=== PATIENT | female | born 1985 | race Hispanic/Latino ===

== ENCOUNTER 2020-09-25 18:30 | Emergency (ER) | payer SELFPAY ==
[2020-09-25] MEDS ORDERED: TETANUS,DIPH,PERTUSS(ACELL) VACCINE 0.5 ML SYRINGE IM ONE (20:14)
[2020-09-25] MEDS ORDERED: IBUPROFEN 600 MG TAB PO ONE (20:14)
[2020-09-25] MEDS ORDERED: ACETAMINOPHEN 500 MG TAB PO ONE (20:14)
[2020-09-25] MEDS ORDERED: ONDANSETRON 4 MG ODT TAB PO ONE (20:15)
--- NOTE | 2020-09-25 20:20 | Emergency Department Report ---
ED Extremity Problem HPI - General Stated complaint: LEFT FOOT INJURY, STEPPED ON A MARIO NAIL Source: patient Mode of arrival: Ambulatory Limitations: No Limitations - History of Present Illness Initial comments: Patient is a 35-year-old white female with a history of chronic tobacco abuse and colitis who presents to the ED with complaint of acute onset persistent severe left plantar foot pain with swelling from a puncture wound she sustained when she accidentally stepped on an old mario nail that appears through her shoes 24 hours ago. Patient states that in the last 12 hours, the pain and the swelling of worsened and that she is unable to bear weight on the left foot because of worsening pain. Patient states that she is not up-to-date with her tetanus vaccinations. Patient denies fever, chills, nausea, vomiting, numbness and tingling or weakness of left foot, dizziness, fall, low back pain, chest pain or shortness of breath. MD Complaint: extremity pain (left foot pain, s/p puncture wound from stepping on a mario nail), extremity swelling (left foot) -: Sudden, hour(s) (24) Location: left, lower extremity (left foot puncture wound with pain and swelling) History of Same: No -: Yes myalgia, Yes arthralgia, No fever, No associated dyspnea, No associated chest pain Radiation: distal Severity scale (0 -10): 8 Quality: aching, sharp Consistency: constant Improves with: nothing Worsens with: weight bearing, walking, exertion, palpation Associated Symptoms: denies other symptoms, myalgias, arthralgias. denies: chest pain, shortness of breath, fever, rash, other (Small puncture wound with swelling and pain on left plantar foot) - Related Data Previous Rx's Medication Instructions Recorded Last Taken Type Acetaminophen [Tylenol] 500 mg PO Q6HR PRN #30 tablet 09/25/20 Unknown Rx Ciprofloxacin HCl 500 mg PO Q12H #20 tablet 09/25/20 Unknown Rx traMADoL [Ultram] 50 mg PO Q6HR PRN #12 tablet 09/25/20 Unknown Rx Allergies Allergy/AdvReac Type Severity Reaction Status Date / Time Iodinated Contrast Media Allergy Itching Verified 09/25/20 20:20 Penicillins Allergy Anaphylaxis Verified 09/25/20 20:20 Sulfa (Sulfonamide Allergy Anaphylaxis Verified 09/25/20 20:20 Antibiotics) NSAIDS (Non-Steroidal AdvReac Diarrhea Verified 09/25/20 20:20 Anti-Inflamma ED Review of Systems ROS: Stated complaint: LEFT FOOT INJURY, STEPPED ON A MARIO NAIL Other details as noted in HPI Constitutional: malaise. denies: chills, fever Eyes: denies: eye pain, eye discharge, vision change ENT: denies: ear pain, throat pain Respiratory: denies: cough, shortness of breath, wheezing Cardiovascular: denies: chest pain, palpitations Endocrine: no symptoms reported Gastrointestinal: denies: abdominal pain, nausea, vomiting, diarrhea Genitourinary: denies: urgency, dysuria, discharge Musculoskeletal: joint swelling (Left foot), arthralgia (Left foot pain with swelling due to a small puncture wound on left plantar foot). denies: back pain Skin: other (Painful small puncture wound on left plantar foot with swelling). denies: rash, lesions Neurological: denies: headache, weakness, paresthesias Psychiatric: denies: anxiety, depression Hematological/Lymphatic: denies: easy bleeding, easy bruising ED Past Medical Hx - Past Medical History Additional medical history: Colitis - Medications Home Medications: Home Medications Medication Instructions Recorded Confirmed Last Taken Type Acetaminophen [Tylenol] 500 mg PO Q6HR PRN #30 tablet 09/25/20 Unknown Rx Ciprofloxacin HCl 500 mg PO Q12H #20 tablet 09/25/20 Unknown Rx traMADoL [Ultram] 50 mg PO Q6HR PRN #12 tablet 09/25/20 Unknown Rx ED Physical Exam - General General appearance: alert, in no apparent distress - Head Head exam: Present: atraumatic, normocephalic, normal inspection - Eye Eye exam: Present: normal appearance, PERRL, EOMI Pupils: Present: normal accommodation - ENT ENT exam: Present: normal exam, normal orophraynx, mucous membranes moist, TM's normal bilaterally, normal external ear exam - Neck Neck exam: Present: normal inspection, full ROM - Respiratory Respiratory exam: Present: normal lung sounds bilaterally. Absent: respiratory distress, wheezes, rales, rhonchi, chest wall tenderness, accessory muscle use, decreased breath sounds - Cardiovascular Cardiovascular Exam: Present: regular rate, normal rhythm, normal heart sounds. Absent: systolic murmur, diastolic murmur, rubs, gallop - GI/Abdominal GI/Abdominal exam: Present: soft, normal bowel sounds. Absent: distended, tenderness, guarding, hyperactive bowel sounds, hypoactive bowel sounds, organomegaly - Extremities Exam Extremities exam: Present: normal inspection, full ROM, tenderness (Palpable severe left plantar foot tenderness with mild swelling due to a small puncture wound), normal capillary refill, joint swelling (Left foot swelling) - Back Exam Back exam: Present: normal inspection, full ROM. Absent: tenderness, CVA tenderness (R), CVA tenderness (L), muscle spasm, paraspinal tenderness, vertebral tenderness - Neurological Exam Neurological exam: Present: alert, oriented X3, CN II-XII intact, normal gait, reflexes normal - Psychiatric Psychiatric exam: Present: normal affect, normal mood - Skin Skin exam: Present: warm, dry, intact, normal color, abrasion (Small puncture wound on left plantar foot with tenderness and mild swelling). Absent: rash ED Course Vital Signs 09/25/20 20:14 Temperature 98.5 F Pulse Rate 75 Respiratory 12 Rate Blood Pressure 101/65 O2 Sat by Pulse 100 Oximetry ED Medical Decision Making - Radiology Data Radiology results: report reviewed, image reviewed [facility] [address] [place] [address] XRay Report Signed Patient: JACKELYN GREENBERG MR#: [id number] [birth year] : 1985 Acct:[id number] Age/Sex: 35 / F ADM Date: 09/25/20 Loc: ED Attending Dr: Ordering Physician: JOANIE MENSAH Date of Service: 09/25/20 Procedure(s): XR foot 3+V LT Accession Number(s): [id number] cc: JOANIE MENSAH Fluoro Time In Minutes: XR foot 3+V LT INDICATION / CLINICAL INFORMATION: Puncture wound COMPARISON: None available. FINDINGS: BONES / JOINT(S): No acute fracture or subluxation. Lisfranc interval is maintained. No significant arthritis. SOFT TISSUES: No significant abnormality. No soft tissue gas or radiopaque foreign body. ADDITIONAL FINDINGS: None. IMPRESSION: No significant abnormality of the left foot. No soft tissue gas, radiopaque foreign body, or acute fracture. Signer Name: Lisa Mena MD Signed: 09/25/2020 8:50 PM Workstation Name: [id number] Transcribed By: SAMARA Dictated By: LISA MENA MD Electronically Authenticated By: LISA MENA MD Signed Date/Time: 09/25/202049 DD/ 48 TD/TT: - Medical Decision Making This is a 35-year-old white female with a history of chronic tobacco abuse and colitis who presents to the ED with complaint of acute onset persistent severe left plantar foot pain with swelling from a puncture wound she sustained when she accidentally stepped on an old mraio nail that appears through her shoes 24 hours ago. Patient states that in the last 12 hours, the pain and the swelling of worsened and that she is unable to bear weight on the left foot because of worsening pain. Patient states that she is not up-to-date with her tetanus vaccinations. In the ED, patient is alert and oriented x3 and is not in any distress but appears to be in significant pain, unable to bear weight on the left foot during the physical exam. Patient was treated for pain in the ED and left foot x-ray shows no acute fractures or subluxations or presence of any foreign bodies within the tissues of the left plantar foot. Patient also received booster tetanus vaccination in the ED and also received initial oral prophylactic antibiotics in the ED. On reevaluation, patient's pain is well controlled medications. Patient was discharged home on pain medication and prophylactic antibiotics ciprofloxacin 500 mg to be taken every 12 hours for 10 days. Patient was advised to follow-up with her primary care physician in 5 to 7 days for reevaluation or return to the ED immediately if symptoms get worse. - Differential Diagnosis Puncture wound; cellulitis; foot fracture; foreign body in foot Critical care attestation.: If time is entered above; I have spent that time in minutes in the direct care of this critically ill patient, excluding procedure time. ED Disposition Clinical Impression: Puncture wound of plantar aspect of left foot Qualifiers: Encounter type: initial encounter Qualified Code(s): S91.332A - Puncture wound without foreign body, left foot, initial encounter Disposition: TO HOME OR SELFCARE Is pt being admited?: No Does the pt Need Aspirin: No Condition: Stable Instructions: Puncture Wound, [id number] Additional Instructions: The x-ray of your left foot showed no acute fractures or subluxations or presence of any foreign bodies within the tissues of the left foot. Therefore take medications with food, drink plenty of fluids and follow-up with your primary care physician in 7 to 10 days for reevaluation. Return to the ED immediately if symptoms get worse. Prescriptions: Acetaminophen [Tylenol] 500 mg PO Q6HR PRN #30 tablet PRN Reason: Pain , Severe (7-10) Ciprofloxacin HCl 500 mg PO Q12H #20 tablet traMADoL [Ultram] 50 mg PO Q6HR PRN #12 tablet PRN Reason: Pain Referrals: [facility] [Provider Group] - 3-5 Days Forms: Work/School Release Form(ED) Time of Disposition: 20:22 Print Language: GERMAN
[2020-09-25] MEDS ORDERED: HYDROcodone/ACETAMINOPHEN 5-325 MG TAB PO ONE (20:25)
[2020-09-25 20:27] VITALS: BP 101/65
--- NOTE | 2020-09-25 20:54 | XRay Report ---
XR foot 3+V LT INDICATION / CLINICAL INFORMATION: Puncture wound COMPARISON: None available. FINDINGS: BONES / JOINT(S): No acute fracture or subluxation. Lisfranc interval is maintained. No significant a rthritis. SOFT TISSUES: No significant abnormality. No soft tissue gas or radiopaque foreign body. ADDITIONAL FINDINGS: None. IMPRESSION: No significant abnormality of the left foot. No soft tissue gas, radiopaque foreign body, or acute fr acture. Signer Name: Marky Saleh MD Signed: 09/25/2020 8:50 PM Workstation Name: [id number]
[2020-09-25] MEDS ORDERED: levoFLOXacin 500 MG TAB PO ONE (21:00)
== END 2020-09-25 22:46 | disposition home or self-care (01) ==
LOC: ED 18:30
DX: S91.332A Puncture wound without foreign body, left foot, initial encounter (principal); Z88.0 Allergy status to penicillin; Z79.899 Other long term (current) drug therapy; Z91.041 Radiographic dye allergy status; W22.09XA Striking against other stationary object, initial encounter; Y93.89 Activity, other specified; Y92.89 Other specified places as the place of occurrence of the external cause; Y99.8 Other external cause status
CPT/HCPCS: 90471; 90715; Q0162